=== PATIENT | male | born 1955 | race American Indian/Alaskan Native ===

== ENCOUNTER 2017-04-07 16:18 | Outpatient (CLI) | payer MEDICARE ==
--- NOTE | 2017-04-08 10:01 | Magnetic Resonance Report ---
MRI BRAIN WITHOUT CONTRAST: 04/07/17 16:18:00 CLINICAL: Unsteady gait. No comparison. TECHNIQUE: Axial diffusion, T1, T2, FLAIR, gradient echo T2*, and sagittal T1 sequences on a 1.5 Lidya magnet. FINDINGS: Normal ventricles and sulci. No restricted diffusion. A few bilateral focal white matter hyperintensities on FLAIR and T2. No mass or mass effect. No hemorrhage, edema or extra-axial collection. Normal pituitary and optic chiasm. The brainstem and cerebellum are normal. Intact vascular flow voids. Extensive mucoperiosteal thickening of the right maxillary sinus. No air-fluid level. The rest of the sinuses are normal. The orbits, and soft tissues are normal. Normal calvarium and skull base. IMPRESSION: 1. No acute change. 2. Mild nonspecific bilateral focal white matter hyperintensities on FLAIR and T2. 3. Right maxillary sinusitis.
--- NOTE | 2017-04-08 10:03 | Magnetic Resonance Report ---
MRI CERVICAL SPINE WITHOUT CONTRAST: 04/07/17 CLINICAL: Cervical radiculopathy and demonstrate gait. TECHNIQUE: Sagittal T1,T2 and STIR and axial gradient T2* sequences without contrast on a 1.5 Lidya magnet. FINDINGS:Status post anterior cervical fusions at C3-4, C4-5 and C5-6. There is straightening of the cervical spine and reversed curvature at the level of fusion. Moderately large posterior osteophytes from C3-4 through C5-6 produce narrowing of the spinal canal. The spinal cord is small and demonstrates multifocal hyperintense signal on T2 from C3-C6. In addition, there is a lobular shaped mass in the spinal canal at the level of C1. Measures approximately 2.0 x 1.6 x 1.3 cm. The relationship of the mass to the cord is not well discerned as axial images do not extend as high as C1. C2-3: Intact disc. Left uncal osteophyte and left facet hypertrophy producing moderate left neural foraminal stenosis. The cord is normal size with normal signal. C3-4:Fusion of the disc space. Posterior osteophytes there is effacement of the thecal sac and moderate spinal canal stenosis (6 mm). A 13 mm long segment of cord atrophy and hyperintense cord signal from the upper portion of the C3 vertebral body through the C3-4 disc level. C4-5: Fusion of the disc space and posterior osteophytes. Mild spinal canal stenosis along with atrophy of the cord and hyperintense signal of the cord. Large uncal osteophytes and severe bilateral neural foraminal stenosis. C5-6:Fusion of the disc space and posterior osteophytes. Mild spinal canal stenosis along with atrophy of the cord and hyperintense signal of the cord. Uncal osteophytes and mild bilateral neural foraminal stenosis. C6-7:Mild disc bulge producing mild effacement of the thecal sac but no cord compression. Large left uncal osteophyte and moderate left neural foraminal stenosis. C7-T1:Intact. IMPRESSION: 1. A 2.0 x 1.6 x 1.3 cm spinal canal mass at the level of C1. Recommend MRI cervical spine with contrast and MRI brain with contrast for further evaluation. 2. Status post anterior cervical fusion from C3-4 through C5-6. Spinal canal stenosis related to the fusion and posterior osteophytes is most significant at C3-4. 3. Spinal cord atrophy with T2 hyperintense cord lesions from C3 through C6. 4. Multilevel bilateral neural foraminal stenosis secondary to osteophytes.
== END 2017-04-07 16:19 | disposition home or self-care (01) ==
LOC: MRI 16:18
PROVIDERS: ATTEND Psychiatry & Neurology Neurology
DX: M48.02 Spinal stenosis, cervical region (principal); M54.12 Radiculopathy, cervical region; M25.78 Osteophyte, vertebrae; G95.89 Other specified diseases of spinal cord; J32.0 Chronic maxillary sinusitis; R26.89 Other abnormalities of gait and mobility
CPT/HCPCS: 70551; 72141